=== PATIENT | female | born 1990 | race Caucasian/White ===

== ENCOUNTER 2019-08-25 16:20 | Inpatient (IN) | payer MEDICAID ==
[2019-08-25] MEDS ORDERED: Sodium Chloride 0.9% 10 ML Syringe FLUSH PRN (17:19)
--- NOTE | 2019-08-25 18:03 | PCM.LDHP ---
L&D History of Present Illness - General Date of Service: 08/25/19 Admit Problem/Dx: Patient Status Order with Admit Dx/Problem 08/25/19 17:19 Patient Status [ADT] Routine 08/25/19 17:23 Patient Status [ADT] Routine Admission Diagnosis/Problem Admission Diagnosis/Problem Vaginal delivery H&P Review of Systems - Review of Systems: Review Of Systems: See Below General: Reports: No Symptoms HEENT: Reports: No Symptoms Pulmonary: Reports: No Symptoms Cardiovascular: Reports: No Symptoms Gastrointestinal: Reports: No Symptoms Genitourinary: Reports: No Symptoms Musculoskeletal: Reports: No Symptoms Skin: Reports: No Symptoms Psychiatric: Reports: No Symptoms Neurological: Reports: No Symptoms Hematologic/Lymphatic: Reports: No Symptoms Immunologic: Reports: No Symptoms L&D Exam - Exam Exam: See Below - OB Specific Contraction Intensity: Strong Movement: Active Heart Tones: Present Heart Rate (FHR) Variability: Moderate (6-25 bmp) Presentation: Vertex - Cortés Score Cortés Score Cervix Position: Anterior Cortés Score Consistency: Soft Cortés Score Effacement: >80% Cortés Score Dilation: > 5 cm Cortés Score 's Station: +1, +2 Cortés Score Total: 13 - Exam General: Alert, Oriented, Cooperative HEENT: PERRLA, Conjunctiva Clear, EACs Clear, EOMI, Hearing Intact, Mucosa Moist & [place], Nares Patent, Normal Nasal Septum, Posterior Pharynx Clear, Pupils Equal, Pupils Reactive, TMs Clear Neck: Supple, Trachea Midline Lungs: Clear to Auscultation, Normal Respiratory Effort Cardiovascular: Regular Rate, Regular Rhythm GI/Abdominal Exam: Normal Bowel Sounds, Soft, Non-Tender, No Organomegaly, No Distention, No Abnormal Bruit, No Mass, Pelvis Stable Rectal Exam: Normal Exam, Normal Rectal Tone Genitourinary: Normal external exam, Normal bimanual exam, Normal speculum exam Back Exam: Normal Inspection, Full Range of Motion Extremities: Normal Inspection, Normal Range of Motion, Non-Tender, No Pedal Edema, Normal Capillary Refill Skin: Warm, Dry, Intact Neurological: Cranial Nerves Intact, Reflexes Equal Bilateral Psychiatric: Alert, Normal Affect, Normal Mood - Patient Data Lab Results Last 24 hrs: Laboratory Results - last 24 hr 08/25/19 Range/Units 16:39 WBC 16.3 H (4.5-11.0) K/uL RBC 4.48 (3.30-5.50) M/uL Hgb 12.7 (12.0-15.0) g/dL Hct 38.1 (36.0-48.0) % MCV 85 (80-98) fL MCH 28 (27-31) pg MCHC 33 (32-36) % Plt Count 241 (150-400) K/uL Result Diagrams: 08/25/19 16:39 - Problem List (1) SNOMED Code(s): 03231726 ICD Code: Z34.90 - ENCNTR FOR SUPRVSN OF NORMAL , UNSP, UNSP TRIMESTER Status: Acute Current Visit: Yes Qualifiers: Weeks of gestation: 38 weeks Qualified Code(s): Z3A.38 - 38 weeks gestation of (2) High-risk in third trimester SNOMED Code(s): 61735473, 45730359 ICD Code: O09.93 - SUPERVISION OF HIGH RISK , UNSP, THIRD TRIMESTER Status: Acute Current Visit: Yes (3) History of CVA (cerebrovascular accident) SNOMED Code(s): 557815795 ICD Code: Z86.73 - PRSNL HX OF TIA (TIA), AND CEREB INFRC W/O RESID DEFICITS Status: Acute Current Visit: Yes (4) Dissection, vertebral artery SNOMED Code(s): 929873124 ICD Code: I77.74 - DISSECTION OF VERTEBRAL ARTERY Status: Acute Current Visit: Yes (5) Macrosomia affecting management of mother in third trimester SNOMED Code(s): 73960253, 31490474 ICD Code: O36.63X0 - MATERNAL CARE FOR EXCESS GROWTH, THIRD TRIMESTER, UNSP Status: Acute Current Visit: Yes Qualifiers: Fetus number: single or unspecified fetus Qualified Code(s): O36.63X0 - Maternal care for excessive growth, third trimester, not applicable or unspecified (6) Labor established SNOMED Code(s): 51099907 ICD Code: PYL9137 - Status: Acute Current Visit: Yes (7) Positive GBS test SNOMED Code(s): 931812213, 630152682 ICD Code: B95.1 - STREPTOCOCCUS, GROUP B, CAUSING DISEASES CLASSD ELSWHR Status: Acute Current Visit: Yes Problem List Initiated/Reviewed/Updated: Yes Orders Last 24hrs: Active Orders 24 hr Category Date Time Status Patient Status [ADT] Routine ADT 08/25/19 17:19 Active Patient Status [ADT] Routine ADT 08/25/19 17:23 Active Ambulate [RC] PER UNIT ROUTINE Care 08/25/19 17:19 Active Communication Order [RC] ASDIRECTED Care 08/25/19 17:19 Active Communication Order [RC] Per Unit Routine Care 08/25/19 17:23 Active Communication Order [RC] Per Unit Routine Care 08/25/19 17:23 Active Communication Order [RC] Per Unit Routine Care 08/25/19 17:23 Active Communication Order [RC] Per Unit Routine Care 08/25/19 17:23 Active Heart Tones [RC] PER UNIT ROUTINE Care 08/25/19 17:19 Active Non Stress Test [RC] Click to Edit Care 08/25/19 17:19 Active Nitrous Oxide Delivery [RC] ASDIRECTED Care 08/25/19 17:23 Active Notify Provider Vital Signs [RC] PRN Care 08/25/19 17:19 Active Notify Provider [RC] PRN Care 08/25/19 17:19 Active Oxygen Therapy [RC] ASDIRECTED Care 08/25/19 17:23 Active Pulse Oximetry [RC] ASDIRECTED Care 08/25/19 17:23 Active Up ad Dodie [RC] ASDIRECTED Care 08/25/19 17:19 Active VTE/DVT Education [RC] Click to Edit Care 08/25/19 17:22 Active Verify Patient Consent Obtain [RC] ASDIRECTED Care 08/25/19 17:23 Active Vital Signs [RC] PER UNIT ROUTINE Care 08/25/19 17:19 Active Vital Signs [RC] PER UNIT ROUTINE Care 08/25/19 17:23 Active Vital Signs [RC] PFP Care 08/25/19 17:23 Active Regular Diet [DIET] Diet 08/25/19 Dinner Active CBC WITH AUTO DIFF [HEME] Routine Lab 08/26/19 06:00 Ordered Acetaminophen [Tylenol Bulk Bottle] Med 08/25/19 17:25 Active See Dose Instructions PO Q4H PRN Ibuprofen [Motrin Bulk Bottle] Med 08/25/19 17:25 Active 600 mg PO Q6H PRN Sodium Chloride 0.9% [Saline Flush] Med 08/25/19 17:19 Active 10 ml FLUSH ASDIRECTED PRN Assess Lochia [WOMSER] Per Unit Routine Oth 08/25/19 17:23 Ordered Assess Uterine Involution [WOMSER] Per Unit Routine Oth 08/25/19 17:23 Ordered DVT/VTE Prophylaxis Reflex [OM.PC] Routine Oth 08/25/19 17:19 Ordered Ice Therapy [OM.PC] Per Unit Routine Oth 08/25/19 17:24 Ordered Medication Discontinuation Instructions [OM.PC] Routine Oth 08/25/19 17:23 Ordered Perineal Care [OM.PC] Per Unit Routine Oth 08/25/19 17:24 Ordered Saline Lock Insert [OM.PC] Routine Oth 08/25/19 17:19 Ordered Sitz Bath [OM.PC] Per Unit Routine Oth 08/25/19 17:24 Ordered Resuscitation Status Routine Resus Stat 08/25/19 17:19 Ordered Medication Orders Acetaminophen (Tylenol Bulk Bottle) 0 mg PO Q4H PRN PRN Reason: Pain Ibuprofen (Motrin Bulk Bottle) 600 mg PO Q6H PRN PRN Reason: Pain Sodium Chloride (Saline Flush) 10 ml FLUSH ASDIRECTED PRN PRN Reason: Keep Vein Open Assessment/Plan Comment:: 08/25/2019 28 yo arrived via ambulance. She states she is 38 6/7 weeks with an [place]-09/02/2019. She states that she started vashti about 1145 and then at about 1315 her water broke. She called the ambulance. She has been getting routine care at [place]. She has a high risk due to history fo CVA post vertebral artery dissection-spontaneous, also has a macrosomic fetus. SVE on admission-/0 FHTs dopplered and category one Due to patient's history she had a neurology consult that told her she could not fully push during second stage of labor Labs-O positive, RPR nonreactive, Hep B neg, HIV neg, Rubella nonimmune, GBS positive, Hgb-12.7, Plt-241 Plan- Patient would like to use nitrous for pain relief Continue to monitor labor Continue to monitor FHTs Plan to deliver vaginally, if not able to push a vacuum may be indicated.
[2019-08-25] MEDS: Lanolin 100% Cream 40 GM Tube TOP ONE (18:15)
[2019-08-25] MEDS: Ibuprofen 200 MG Tab, 24 Tab Bulk Bottle PO PRN (18:17)
[2019-08-25] MEDS: Witch Hazel Medicated Pads 100/Jar TOP ONE (18:17)
[2019-08-25] MEDS: Acetaminophen 325 MG Tab, 50 Tab Bulk Bottle PO PRN (18:18)
[2019-08-25] MEDS: Benzocaine 20% Top Spray 56 GM Bottle TOP ONE (18:18)
--- NOTE | 2019-08-25 18:22 | PCM.DEL ---
L & D Note - General Info Date of Service: 08/25/19 Mother's Due Date: 08/25/19 - Delivery Note Labor: Spontaneous Delivery Outcome: Livebirth Infant Delivery Method: Spontaneous Vaginal Delivery-Single Infant Delivery Mode: Spontaneous Presentation: Left Occiput Anterior (PIYUSH) Nuchal Cord: None Anesthesia Type: Nitrous Oxide Amniotic Fluid Description: Clear Episiotomy Type: None Laceration: Perineal (small not bleeding, not repaired) Placenta: Intact, Spontaneous Cord: 3 Vessels Estimated Blood Loss: 350 Resuscitation Needed: No [place]: Stimulated, Warmed Score 1 min: 9 Score 5 min: 9 Second Stage Interventions: Reports: Second Nurse Assessed Progress of Descent, Second Nurse Reviewed Contraction Pattern, Second Nurse Reviewed Heart Tones, Encouragement Given, Laboring Down, Pushing Effectively, Pushing Involuntarily, Pushing, McRobert's Position, Pushing, Stirrups/Leg Supports Delivery Comments (Free Text/Narrative):: 08/25/2019 28 yo delivered a viable female at 1646 on 08/25/2019 at 38 6/7 gestational weeks in PIYUSH position over an intact perineum. Mother has a history of CVA with vertebral artery dissection so light grunt pushing was done with no chin to chest or straining. Patient used nitrous inbetween and was able to deliver after laboring down. Infant was delivered vaginally and then placed on prewarmed blanket on mothers abdomen. cried out spontaneously and began to pink in color. Delayed cord clamping was done for approximately two minutes, then cord was double clamped and cut by the father of the infant. was then brought to be skin to skin with mother at this time. APGARS-9/9 , weight-8lbs 13oz, length-21inches, then placenta came spontaneously, intact, three vessel cord, large gush after but fundus firm with massage, did give a dose of IM pitocin at that time. Patient had small perineal laceration, not bleeding, not repaired, no other lacerations noted of perineum, cervix, labia, vagina, or rectum. EBL-350ml. Mother and both stable in labor and delivery room. Stages of labor- 1st [id number] 2nd [id number] 3rd [id number] - General Info Date of Service: 08/25/19 Functional Status: Reports: Pain Controlled - Review of Systems General: Reports: No Symptoms HEENT: Reports: No Symptoms Pulmonary: Reports: No Symptoms Cardiovascular: Reports: No Symptoms Gastrointestinal: Reports: No Symptoms Genitourinary: Reports: No Symptoms Musculoskeletal: Reports: No Symptoms Skin: Reports: No Symptoms Neurological: Reports: No Symptoms Psychiatric: Reports: No Symptoms - Patient Data Lab Results Last 24 Hours: Laboratory Results - last 24 hr 08/25/19 Range/Units 16:39 WBC 16.3 H (4.5-11.0) K/uL RBC 4.48 (3.30-5.50) M/uL Hgb 12.7 (12.0-15.0) g/dL Hct 38.1 (36.0-48.0) % MCV 85 (80-98) fL MCH 28 (27-31) pg MCHC 33 (32-36) % Plt Count 241 (150-400) K/uL Med Orders - Current: Current Medications Acetaminophen (Tylenol Bulk Bottle) 0 mg PO Q4H PRN PRN Reason: Pain Ibuprofen (Motrin Bulk Bottle) 600 mg PO Q6H PRN PRN Reason: Pain Sodium Chloride (Saline Flush) 10 ml FLUSH ASDIRECTED PRN PRN Reason: Keep Vein Open Discontinued Medications Benzocaine (Txco-C-Njpkrxd 20% [place]) 0 gm TOP ONETIME ONE Stop: 08/25/19 17:24 Emollient Ointment (Lansinoh Hpa) 1 gm TOP ONETIME ONE Stop: 08/25/19 17:24 Lidocaine HCl (Xylocaine 1%) Confirm Administered Dose 100 ml .ROUTE .STK-MED ONE Stop: 08/25/19 16:38 Mineral Oil (Muri-Lube) Confirm Administered Dose 10 ml .ROUTE .STK-MED ONE Stop: 08/25/19 16:38 Oxytocin (Pitocin) Confirm Administered Dose 10 unit .ROUTE .STK-MED ONE Stop: 08/25/19 16:33 Witch Belkis (Tucks) 1 pad TOP ONETIME ONE Stop: 08/25/19 17:24 - Exam General: Alert, Oriented, Cooperative HEENT: Pupils Equal, Pupils Reactive, EOMI, Mucous Membr. Moist/[place] Neck: Supple Lungs: Clear to Auscultation, Normal Respiratory Effort Cardiovascular: Regular Rate, Regular Rhythm, No Murmurs GI/Abdominal Exam: Normal Bowel Sounds, Soft, Non-Tender, No Organomegaly, No Distention, No Abnormal Bruit, No Mass, Pelvis Stable (Female) Exam: Normal External Exam, Normal Speculum Exam, Normal Bimanual Exam, Enlarged Uterus, Vaginal Bleeding Back Exam: Normal Inspection, Full Range of Motion Extremities: Normal Inspection, Normal Range of Motion, Non-Tender, No Pedal Edema, Normal Capillary Refill Skin: Warm, Dry, Intact Neurological: No New Focal Deficit Psy/Mental Status: Alert, Normal Affect, Normal Mood - Problem List & Annotations (1) SNOMED Code(s): 78507651 Code(s): Z34.90 - ENCNTR FOR SUPRVSN OF NORMAL , UNSP, UNSP TRIMESTER Status: Acute Current Visit: Yes Qualifiers: Weeks of gestation: 38 weeks Qualified Code(s): Z3A.38 - 38 weeks gestation of (2) High-risk in third trimester SNOMED Code(s): 92416036, 08340665 Code(s): O09.93 - SUPERVISION OF HIGH RISK , UNSP, THIRD TRIMESTER Status: Acute Current Visit: Yes (3) History of CVA (cerebrovascular accident) SNOMED Code(s): 604234263 Code(s): Z86.73 - PRSNL HX OF TIA (TIA), AND CEREB INFRC W/O RESID DEFICITS Status: Acute Current Visit: Yes (4) Dissection, vertebral artery SNOMED Code(s): 506051517 Code(s): I77.74 - DISSECTION OF VERTEBRAL ARTERY Status: Acute Current Visit: Yes (5) Macrosomia affecting management of mother in third trimester SNOMED Code(s): 30581405, 93038635 Code(s): O36.63X0 - MATERNAL CARE FOR EXCESS GROWTH, THIRD TRIMESTER, UNSP Status: Acute Current Visit: Yes Qualifiers: Fetus number: single or unspecified fetus Qualified Code(s): O36.63X0 - Maternal care for excessive growth, third trimester, not applicable or unspecified (6) Labor established SNOMED Code(s): 59608332 Code(s): FDN3185 - Status: Acute Current Visit: Yes (7) Positive GBS test SNOMED Code(s): 328032011, 374545183 Code(s): B95.1 - STREPTOCOCCUS, GROUP B, CAUSING DISEASES CLASSD ELSWHR Status: Acute Current Visit: Yes - Problem List Review Problem List Initiated/Reviewed/Updated: Yes - My Orders Last 24 Hours: My Active Orders 08/25/19 17:19 Patient Status [ADT] Routine Ambulate [RC] PER UNIT ROUTINE Communication Order [RC] ASDIRECTED Heart Tones [RC] PER UNIT ROUTINE Non Stress Test [RC] Click to Edit Notify Provider Vital Signs [RC] PRN Notify Provider [RC] PRN Up ad Dodie [RC] ASDIRECTED Vital Signs [RC] PER UNIT ROUTINE Sodium Chloride 0.9% [Saline Flush] 10 ml FLUSH ASDIRECTED PRN DVT/VTE Prophylaxis Reflex [OM.PC] Routine Saline Lock Insert [OM.PC] Routine Resuscitation Status Routine 08/25/19 17:22 VTE/DVT Education [RC] Click to Edit 08/25/19 17:23 Patient Status [ADT] Routine Communication Order [RC] Per Unit Routine Communication Order [RC] Per Unit Routine Communication Order [RC] Per Unit Routine Communication Order [RC] Per Unit Routine Nitrous Oxide Delivery [RC] ASDIRECTED Oxygen Therapy [RC] ASDIRECTED Pulse Oximetry [RC] ASDIRECTED Verify Patient Consent Obtain [RC] ASDIRECTED Vital Signs [RC] PER UNIT ROUTINE Vital Signs [RC] PFP Assess Lochia [WOMSER] Per Unit Routine Assess Uterine Involution [WOMSER] Per Unit Routine Medication Discontinuation Instructions [OM.PC] Routine 08/25/19 17:24 Ice Therapy [OM.PC] Per Unit Routine Perineal Care [OM.PC] Per Unit Routine Sitz Bath [OM.PC] Per Unit Routine 08/25/19 17:25 Acetaminophen [Tylenol Bulk Bottle] See Dose Instructions PO Q4H PRN Ibuprofen [Motrin Bulk Bottle] 600 mg PO Q6H PRN 08/25/19 Dinner Regular Diet [DIET] 08/26/19 06:00 CBC WITH AUTO DIFF [HEME] Routine - Assessment Assessment:: 08/25/2019 28 yo at 38 6/7 weeks gestation delivered without complications Macrosomic Fetus High risk History of CVA History of verebral artery dissection GBS positive-not treated - Plan Plan:: 08/25/2019 28 yo arrived via ambulance. She states she is 38 6/7 weeks with an [place]-09/02/2019. She states that she started vashti about 1145 and then at about 1315 her water broke. She called the ambulance. She has been getting routine care at [place]. She has a high risk due to history fo CVA post vertebral artery dissection-spontaneous, also has a macrosomic fetus. SVE on admission-/0 FHTs dopplered and category one Due to patient's history she had a neurology consult that told her she could not fully push during second stage of labor Labs-O positive, RPR nonreactive, Hep B neg, HIV neg, Rubella nonimmune, GBS positive, Hgb-12.7, Plt-241 Plan- Patient would like to use nitrous for pain relief Continue to monitor labor Continue to monitor FHTs Plan to deliver vaginally, if not able to push a vacuum may be indicated. 08/25/2019 Routine cares Watch fundus and bleeding closely Support and encourage Plan and anticipate discharge in 24-48 hours
[2019-08-25] MEDS: Mineral Oil 10 ML Bottle ONE (20:03)
[2019-08-25] MEDS: Oxytocin 10 Units/1 ML SDV ONE (20:03)
[2019-08-25] MEDS: Lidocaine 1% 50 ML MDV ONE (20:03)
[2019-08-25] MEDS: Oxytocin 10 Units/1 ML SDV IM ONE (20:20)
--- NOTE | 2019-08-26 08:17 | PCM.PNPP ---
- General Info Date of Service: 08/26/19 Functional Status: Reports: Pain Controlled - Review of Systems General: Reports: No Symptoms HEENT: Reports: No Symptoms Pulmonary: Reports: No Symptoms Cardiovascular: Reports: No Symptoms Gastrointestinal: Reports: No Symptoms Genitourinary: Reports: No Symptoms Musculoskeletal: Reports: No Symptoms Skin: Reports: No Symptoms Neurological: Reports: No Symptoms Psychiatric: Reports: No Symptoms - General Info Date of Service: 08/26/19 - Patient Data Vital Signs - Most Recent: Last Vital Signs Temp 36.7 C 08/25/19 20:45 Pulse 75 08/26/19 03:00 Resp 16 08/26/19 03:00 BP 112/78 08/26/19 03:00 Pulse Ox 99 08/26/19 03:00 Weight - Most Recent: 80.9 kg Lab Results - Last 24 Hours: Laboratory Results - last 24 hr 08/25/19 08/26/19 Range/Units 16:39 04:10 WBC 16.3 H 13.2 H (4.5-11.0) K/uL RBC 4.48 3.93 (3.30-5.50) M/uL Hgb 12.7 11.1 L (12.0-15.0) g/dL Hct 38.1 33.7 L (36.0-48.0) % MCV 85 86 (80-98) fL MCH 28 28 (27-31) pg MCHC 33 33 (32-36) % Plt Count 241 224 (150-400) K/uL Neut % (Auto) 73 H (36-66) % Lymph % (Auto) 19 L (24-44) % [place] % (Auto) 8 H (2-6) % Eos % (Auto) 1 L (2-4) % Baso % (Auto) 0 (0-1) % Med Orders - Current: Current Medications Acetaminophen (Tylenol Bulk Bottle) 0 mg PO Q4H PRN PRN Reason: Pain Last Admin: 08/25/19 18:18 Dose: 1 bottle Ibuprofen (Motrin Bulk Bottle) 600 mg PO Q6H PRN PRN Reason: Pain Last Admin: 08/25/19 18:17 Dose: 1 bottle Sodium Chloride (Saline Flush) 10 ml FLUSH ASDIRECTED PRN PRN Reason: Keep Vein Open Discontinued Medications Benzocaine (Vdgu-E-Ehbsrzs 20% [place]) 0 gm TOP ONETIME ONE Stop: 08/25/19 17:24 Last Admin: 08/25/19 18:18 Dose: 1 bottle Emollient Ointment (Lansinoh Hpa) 1 gm TOP ONETIME ONE Stop: 08/25/19 17:24 Last Admin: 08/25/19 18:15 Dose: 1 tube Lidocaine HCl (Xylocaine 1%) Confirm Administered Dose 100 ml .ROUTE .STK-MED ONE Stop: 08/25/19 16:38 Last Admin: 08/25/19 20:03 Dose: Not Given Mineral Oil (Muri-Lube) Confirm Administered Dose 10 ml .ROUTE .STK-MED ONE Stop: 08/25/19 16:38 Last Admin: 08/25/19 20:03 Dose: Not Given Oxytocin (Pitocin) Confirm Administered Dose 10 unit .ROUTE .STK-MED ONE Stop: 08/25/19 16:33 Last Admin: 08/25/19 20:03 Dose: Not Given Oxytocin (Pitocin) 10 unit IM ONETIME ONE Stop: 08/25/19 16:46 Last Admin: 08/25/19 20:20 Dose: 10 unit Witch Belkis (Tucks) 1 pad TOP ONETIME ONE Stop: 08/25/19 17:24 Last Admin: 08/25/19 18:17 Dose: 1 bottle - Infant Interaction Disposition, : in Room with Family Interaction: Holding Infant Feeding: Breastfed Infant; Nursed Well Support Person: - Recovery Exam Fundal Tone: Firm Fundal Level: At Umbilicus Fundal Placement: Midline Lochia Amount: Moderate Lochia Color: Rubra/Red Perineum Description: Intact, Minimal Bruising/Swelling Episiotomy/Laceration: None Urinary Elimination: Voided - Exam General: Alert, Oriented, Cooperative HEENT: Pupils Equal Neck: Supple Lungs: Clear to Auscultation, Normal Respiratory Effort Cardiovascular: Regular Rate, Regular Rhythm GI/Abdominal Exam: Normal Bowel Sounds, Soft, Non-Tender, No Organomegaly, No Distention, No Abnormal Bruit, No Mass, Pelvis Stable Extremities: Normal Inspection, Normal Range of Motion, Non-Tender, No Pedal Edema, Normal Capillary Refill Skin: Warm, Dry, Intact Wound/Incisions: Healing Well Neurological: No New Focal Deficit Psy/Mental Status: Alert, Normal Affect, Normal Mood - Problem List & Annotations (1) SNOMED Code(s): 79092758 Code(s): Z34.90 - ENCNTR FOR SUPRVSN OF NORMAL , UNSP, UNSP TRIMESTER Status: Acute Current Visit: Yes Qualifiers: Weeks of gestation: 38 weeks Qualified Code(s): Z3A.38 - 38 weeks gestation of (2) High-risk in third trimester SNOMED Code(s): 30899020, 99390277 Code(s): O09.93 - SUPERVISION OF HIGH RISK , UNSP, THIRD TRIMESTER Status: Acute Current Visit: Yes (3) History of CVA (cerebrovascular accident) SNOMED Code(s): 368114771 Code(s): Z86.73 - PRSNL HX OF TIA (TIA), AND CEREB INFRC W/O RESID DEFICITS Status: Acute Current Visit: Yes (4) Dissection, vertebral artery SNOMED Code(s): 842848674 Code(s): I77.74 - DISSECTION OF VERTEBRAL ARTERY Status: Acute Current Visit: Yes (5) Macrosomia affecting management of mother in third trimester SNOMED Code(s): 80334549, 43346341 Code(s): O36.63X0 - MATERNAL CARE FOR EXCESS GROWTH, THIRD TRIMESTER, UNSP Status: Acute Current Visit: Yes Qualifiers: Fetus number: single or unspecified fetus Qualified Code(s): O36.63X0 - Maternal care for excessive growth, third trimester, not applicable or unspecified (6) Labor established SNOMED Code(s): 89873096 Code(s): EWL5685 - Status: Acute Current Visit: Yes (7) Positive GBS test SNOMED Code(s): 449260094, 314770786 Code(s): B95.1 - STREPTOCOCCUS, GROUP B, CAUSING DISEASES CLASSD ELSWHR Status: Acute Current Visit: Yes - Problem List Review Problem List Initiated/Reviewed/Updated: Yes - My Orders Last 24 Hours: My Active Orders 08/25/19 17:19 Patient Status [ADT] Routine Ambulate [RC] PER UNIT ROUTINE Notify Provider Vital Signs [RC] PRN Notify Provider [RC] PRN Up ad [place] [RC] ASDIRECTED Vital Signs [RC] PER UNIT ROUTINE Sodium Chloride 0.9% [Saline Flush] 10 ml FLUSH ASDIRECTED PRN DVT/VTE Prophylaxis Reflex [OM.PC] Routine Saline Lock Insert [OM.PC] Routine Resuscitation Status Routine 08/25/19 17:22 VTE/DVT Education [RC] Click to Edit 08/25/19 17:23 Patient Status [ADT] Routine Oxygen Therapy [RC] ASDIRECTED Assess Lochia [WOMSER] Per Unit Routine Assess Uterine Involution [WOMSER] Per Unit Routine Medication Discontinuation Instructions [OM.PC] Routine 08/25/19 17:24 Ice Therapy [OM.PC] Per Unit Routine Perineal Care [OM.PC] Per Unit Routine Sitz Bath [OM.PC] Per Unit Routine 08/25/19 17:25 Acetaminophen [Tylenol Bulk Bottle] See Dose Instructions PO Q4H PRN Ibuprofen [Motrin Bulk Bottle] 600 mg PO Q6H PRN 08/25/19 Dinner Regular Diet [DIET] - Assessment Assessment:: 08/25/2019 28 yo at 38 6/7 weeks gestation delivered without complications Macrosomic Fetus High risk History of CVA History of verebral artery dissection GBS positive-not treated 08/26/2019 without complications day one well High risk History of CVA History of verebral artery dissection GBS positive-not treated Fundus firm and bleeding [id number] - Plan Plan:: 08/25/2019 28 yo arrived via ambulance. She states she is 38 6/7 weeks with an [place]-09[place]02/2019. She states that she started vashti about 1145 and then at about 1315 her water broke. She called the ambulance. She has been getting routine care at [place]. She has a high risk due to history fo CVA post vertebral artery dissection-spontaneous, also has a macrosomic fetus. SVE on admission-/100/0 FHTs dopplered and category one Due to patient's history she had a neurology consult that told her she could not fully push during second stage of labor Labs-O positive, RPR nonreactive, Hep B neg, HIV neg, Rubella nonimmune, GBS positive, Hgb-12.7, Plt-241 Plan- Patient would like to use nitrous for pain relief Continue to monitor labor Continue to monitor FHTs Plan to deliver vaginally, if not able to push a vacuum may be indicated. 08/25/2019 Routine cares Watch fundus and bleeding closely Support and encourage Plan and anticipate discharge in 24-48 hours 08/26/2019 Continue routine cares Continue to support and encourage Fit for compression stockings today Plan and anticipate discharge in 24-48 hours
--- NOTE | 2019-08-27 07:57 | PCM.PNPP ---
- General Info Date of Service: 08/27/19 Functional Status: Reports: Pain Controlled - Review of Systems General: Reports: No Symptoms HEENT: Reports: No Symptoms Pulmonary: Reports: No Symptoms Cardiovascular: Reports: No Symptoms Gastrointestinal: Reports: No Symptoms Genitourinary: Reports: No Symptoms Musculoskeletal: Reports: No Symptoms Skin: Reports: No Symptoms Neurological: Reports: No Symptoms Psychiatric: Reports: No Symptoms - General Info Date of Service: 08/27/19 - Patient Data Vital Signs - Most Recent: Last Vital Signs Temp 36.8 C 08/27/19 01:00 Pulse 74 08/27/19 01:00 Resp 18 08/27/19 01:00 BP 116/69 08/27/19 01:00 Pulse Ox 98 08/27/19 01:00 Weight - Most Recent: 80.9 kg I&O - Last 24 Hours: Intake & Output 08/26/19 08/27/19 08/27/19 22:59 06:59 14:59 Intake Total 500 Balance 500 Med Orders - Current: Current Medications Acetaminophen (Tylenol Bulk Bottle) 0 mg PO Q4H PRN PRN Reason: Pain Last Admin: 08/25/19 18:18 Dose: 1 bottle Ibuprofen (Motrin Bulk Bottle) 600 mg PO Q6H PRN PRN Reason: Pain Last Admin: 08/25/19 18:17 Dose: 1 bottle Sodium Chloride (Saline Flush) 10 ml FLUSH ASDIRECTED PRN PRN Reason: Keep Vein Open Discontinued Medications Benzocaine ([id number] 20% [place]) 0 gm TOP ONETIME ONE Stop: 08/25/19 17:24 Last Admin: 08/25/19 18:18 Dose: 1 bottle Emollient Ointment (Lansinoh Hpa) 1 gm TOP ONETIME ONE Stop: 08/25/19 17:24 Last Admin: 08/25/19 18:15 Dose: 1 tube Lidocaine HCl (Xylocaine 1%) Confirm Administered Dose 100 ml .ROUTE .STK-MED ONE Stop: 08/25/19 16:38 Last Admin: 08/25/19 20:03 Dose: Not Given Mineral Oil (Muri-Lube) Confirm Administered Dose 10 ml .ROUTE .STK-MED ONE Stop: 08/25/19 16:38 Last Admin: 08/25/19 20:03 Dose: Not Given Oxytocin (Pitocin) Confirm Administered Dose 10 unit .ROUTE .STK-MED ONE Stop: 08/25/19 16:33 Last Admin: 08/25/19 20:03 Dose: Not Given Oxytocin (Pitocin) 10 unit IM ONETIME ONE Stop: 08/25/19 16:46 Last Admin: 08/25/19 20:20 Dose: 10 unit Karen Kellerel (Tucks) 1 pad TOP ONETIME ONE Stop: 08/25/19 17:24 Last Admin: 08/25/19 18:17 Dose: 1 bottle - Infant Interaction Disposition, : in Room with Family Infant Interaction: Holding Feeding: Breastfed Infant; Nursed Well Support Person: - Recovery Exam Fundal Tone: Firm Fundal Level: At Umbilicus Fundal Placement: Midline Lochia Amount: Small Lochia Color: Rubra/Red Perineum Description: Intact, Minimal Bruising/Swelling Episiotomy/Laceration: None Bladder Status: Voiding Urinary Elimination: Voided - Exam General: Alert, Oriented, Cooperative HEENT: Pupils Equal, Pupils Reactive, EOMI, Mucous Membr. Moist/[place] Neck: Supple Lungs: Clear to Auscultation, Normal Respiratory Effort Cardiovascular: Regular Rate, Regular Rhythm GI/Abdominal Exam: Normal Bowel Sounds, Soft, Non-Tender, No Organomegaly, No Distention, No Abnormal Bruit, No Mass, Pelvis Stable Extremities: Normal Inspection, Normal Range of Motion, Non-Tender, No Pedal Edema, Normal Capillary Refill Skin: Warm, Dry, Intact Wound/Incisions: Healing Well Neurological: No New Focal Deficit Psy/Mental Status: Alert, Normal Affect, Normal Mood - Problem List & Annotations (1) SNOMED Code(s): 61161976 Code(s): Z34.90 - ENCNTR FOR SUPRVSN OF NORMAL , UNSP, UNSP TRIMESTER Status: Acute Current Visit: Yes Qualifiers: Weeks of gestation: 38 weeks Qualified Code(s): Z3A.38 - 38 weeks gestation of (2) High-risk in third trimester SNOMED Code(s): 27239309, 45157924 Code(s): O09.93 - SUPERVISION OF HIGH RISK , UNSP, THIRD TRIMESTER Status: Acute Current Visit: Yes (3) History of CVA (cerebrovascular accident) SNOMED Code(s): 451952425 Code(s): Z86.73 - PRSNL HX OF TIA (TIA), AND CEREB INFRC W/O RESID DEFICITS Status: Chronic Current Visit: Yes (4) Dissection, vertebral artery SNOMED Code(s): 357143509 Code(s): I77.74 - DISSECTION OF VERTEBRAL ARTERY Status: Acute Current Visit: Yes (5) Macrosomia affecting management of mother in third trimester SNOMED Code(s): 12803018, 98222103 Code(s): O36.63X0 - MATERNAL CARE FOR EXCESS GROWTH, THIRD TRIMESTER, UNSP Status: Acute Current Visit: Yes Qualifiers: Fetus number: single or unspecified fetus Qualified Code(s): O36.63X0 - Maternal care for excessive growth, third trimester, not applicable or unspecified (6) Labor established SNOMED Code(s): 32960701 Code(s): OIZ6179 - Status: Acute Current Visit: Yes (7) Positive GBS test SNOMED Code(s): 740257726, 150584762 Code(s): B95.1 - STREPTOCOCCUS, GROUP B, CAUSING DISEASES CLASSD ELSWHR Status: Acute Current Visit: Yes - Problem List Review Problem List Initiated/Reviewed/Updated: Yes - My Orders Last 24 Hours: My Active Orders 08/26/19 08:17 Antiembolic Devices [RC] .Routine Anti-Embolism Stockings AK [Antiembolic Hose] [OM.PC] Routine - Assessment Assessment:: 08/25/2019 28 yo at 38 6/7 weeks gestation delivered without complications Macrosomic Fetus High risk History of CVA History of verebral artery dissection GBS positive-not treated 08/26/2019 without complications day one well High risk History of CVA History of verebral artery dissection GBS positive-not treated Fundus firm and bleeding [id number] 08/27/2019 without complications day two well High risk History of CVA History of verebral artery dissection GBS positive-not treated Desires discharge home today - Plan Plan:: 08/25/2019 28 yo arrived via ambulance. She states she is 38 6/7 weeks with an [place]-09/02/2019. She states that she started vashti about 1145 and then at about 1315 her water broke. She called the ambulance. She has been getting routine care at [facility]. She has a high risk due to history fo CVA post vertebral artery dissection-spontaneous, also has a macrosomic fetus. SVE on admission-/ FHTs dopplered and category one Due to patient's history she had a neurology consult that told her she could not fully push during second stage of labor Labs-O positive, RPR nonreactive, Hep B neg, HIV neg, Rubella nonimmune, GBS positive, Hgb-12.7, Plt-241 Plan- Patient would like to use nitrous for pain relief Continue to monitor labor Continue to monitor FHTs Plan to deliver vaginally, if not able to push a vacuum may be indicated. 08/25/2019 Routine cares Watch fundus and bleeding closely Support and encourage Plan and anticipate discharge in 24-48 hours 08/26/2019 Continue routine cares Continue to support and encourage Fit for compression stockings today Plan and anticipate discharge in 24-48 hours 08/27/2019 Continue routine cares Continue to support and encourage Plan discharge today home To see me in clinic in six weeks for visit
== END 2019-08-27 10:00 | disposition home or self-care (01) | DRG 807 ==
LOC: JP.OB 16:20 → OBSVTOIN 16:46 → JP.MS 22:03
PROVIDERS: ADMIT Advanced Practice Midwife; ATTEND Advanced Practice Midwife
PROC: 10E0XZZ Delivery of Products of Conception, External Approach (ICD-10-PCS; principal; 2019-08-25)
DX: O36.63X0 Maternal care for excessive fetal growth, third trimester, not applicable or unspecified (principal); Z37.0 Single live birth; O99.824 Streptococcus B carrier state complicating childbirth; Z3A.38 38 weeks gestation of pregnancy; Z86.73 Personal history of transient ischemic attack (TIA), and cerebral infarction without residual deficits
CPT/HCPCS: 36415; 59409; 85025; 85027; 99211; A9270-GY; J2590

== ENCOUNTER 2021-04-23 01:32 | Inpatient (IN) | payer MEDICAID ==
--- NOTE | 2021-04-23 02:37 | PCM.LDHP ---
L&D History of Present Illness - General Date of Service: 04/23/21 Admit Problem/Dx: Admission Diagnosis/Problem Admission Diagnosis/Problem Source of Information: Patient History Limitations: Reports: No Limitations - History of Present Illness Introduction:: 04/23/21 Amanda is a 30 yo here at 39 1/7 weeks with spontaneous labor. She had SROM of clear fluid at 2230 last evening, contractions started about 2 hours later. Contractions are now 3-4 minutes apart and moderate in intensity. She has an [place] of 04/29/21. She is O positive blood type, rubella non-immune, GBS negative, PRP/HIV/hep B/C all nonreactive. She has had an uncomplicated . She does have a history of a cerebral artery dissection stroke after the of her first baby. Neurology thought this was spontaneous and found no cause. She has been recommended to be taking a baby aspirin daily during . The of her second child they made her have an epidural and would only let her gently bear down. Her third was a precipitous labor without complications. She declines pain medication again now and understands her risks but wants a natural labor. Timing/Duration: Reports: minutes: (3-4) Location, : Reports: Abdomen, Lower back Quality: Reports: Sharp Severity: Moderate Improves with: Reports: None Worsens with: Reports: None Associated Symptoms: Reports: vaginal fluid. Denies: vaginal bleeding - Related Data Allergies/Adverse Reactions: Allergies Allergy/AdvReac Type Severity Reaction Status Date / Time dexamethasone Allergy Hives Verified 08/25/19 18:00 latex Allergy Hives Verified 08/25/19 18:00 Penicillins Allergy Hives Verified 08/25/19 18:00 Sulfa (Sulfonamide Allergy Hives Verified 08/25/19 18:00 Antibiotics) Home Medications: Home Meds L.acidoph,Paracasei, B.lactis [Probiotic] 1 tab PO DAILY 08/25/19 [History] Pnv No.95/Ferrous Fum/Folic AC [ Caplet] 1 tab PO DAILY 08/25/19 [History] Past Medical History HEENT History: Reports: Impaired Vision Other HEENT History: wears glasses Cardiovascular History: Reports: None Respiratory History: Reports: None Gastrointestinal History: Reports: GERD, Irritable Bowel Syndrome Genitourinary History: Reports: None TOWER CLIMBER History: Reports: : 4 Para: 3 LMP (Approximate): Musculoskeletal History: Reports: None Neurological History: Reports: CVA, Headaches, Chronic, Migraines, Other (See Below) Other Neuro History: vertebral aterial dissection Psychiatric History: Reports: None Endocrine/Metabolic History: Reports: Other (See Below) Other Endocrine/Metabolic History: thyroid dysfunction Hematologic History: Reports: Other (See Below) Other Hematologic History: vitamin D deficiency Immunologic History: Reports: None Oncologic (Cancer) History: Reports: None Dermatologic History: Reports: None - Infectious Disease History Infectious Disease History: Reports: None - Past Surgical History Head Surgeries/Procedures: Reports: None HEENT Surgical History: Reports: None Cardiovascular Surgical History: Reports: None Respiratory Surgical History: Reports: None GI Surgical History: Reports: None Female Surgical History: Reports: LEEP, Other (See Below) Other Female Surgeries/Procedures: cervical biopsy, ovarian cysts Neurological Surgical History: Reports: None Musculoskeletal Surgical History: Reports: None Oncologic Surgical History: Reports: None Dermatological Surgical History: Reports: Skin Biopsy Social & Family History - Family History Family Medical History: No Pertinent Family History - Tobacco Use Tobacco Use Status *Q: Never Tobacco User - Caffeine Use Caffeine Use: Reports: Coffee - Recreational Drug Use Recreational Drug Use: No H&P Review of Systems - Review of Systems: Review Of Systems: See Below General: Reports: No Symptoms HEENT: Reports: No Symptoms Pulmonary: Reports: No Symptoms Cardiovascular: Reports: No Symptoms Gastrointestinal: Reports: No Symptoms Genitourinary: Reports: No Symptoms Musculoskeletal: Reports: No Symptoms Skin: Reports: No Symptoms Psychiatric: Reports: No Symptoms Neurological: Reports: No Symptoms Hematologic/Lymphatic: Reports: No Symptoms Immunologic: Reports: No Symptoms L&D Exam - Exam Exam: See Below - Vital Signs Weight: 82.554 kg - OB Specific Contraction Intensity: Moderate Movement: Active Heart Tones: Present Heart Tones per Min: 140 Heart Rate (FHR) Variability: Moderate (6-25 bpm) Presentation: Vertex - Exam General: Alert, Oriented HEENT: PERRLA, Mucosa Moist & [place], Pupils Equal, Pupils Reactive Neck: Supple, Trachea Midline Lungs: Clear to Auscultation, Normal Respiratory Effort Cardiovascular: Regular Rate, Regular Rhythm GI/Abdominal Exam: Normal Bowel Sounds, Soft, Non-Tender, Pelvis Stable Genitourinary: Normal external exam Back Exam: Normal Inspection, Full Range of Motion Extremities: Normal Inspection, Normal Range of Motion, Non-Tender, No Pedal Edema Skin: Warm, Dry, Intact Neurological: Cranial Nerves Intact, Reflexes Equal Bilateral Psychiatric: Alert, Normal Affect, Normal Mood - Patient Data Lab Results Last 24 hrs: Laboratory Results - last 24 hr 04/23/21 04/23/21 04/23/21 Range/Units 02:04 02:05 02:05 Urine Color Yellow (YELLOW) Urine Appearance Clear (CLEAR) Urine pH 7.0 (5.0-8.0) Ur Specific [place] 1.015 (1.008-1.030) Urine Protein Negative (NEGATIVE) mg/dL Urine Glucose (UA) Negative (NEGATIVE) mg/dL Urine Ketones Negative (NEGATIVE) mg/dL Urine Occult Blood Negative (NEGATIVE) Urine Nitrite Negative (NEGATIVE) Urine Bilirubin Negative (NEGATIVE) Urine Urobilinogen 0.2 (0.2-1.0) EU/dL Ur Leukocyte Esterase Trace H (NEGATIVE) Urine RBC 0-5 (0-5) Urine WBC 0-5 (0-5) Ur Epithelial Cells Rare Amorphous Sediment Not seen Urine Bacteria Few Urine Mucus Not seen Urine Opiates Screen Negative (NEGATIVE) Ur Oxycodone Screen Negative (NEGATIVE) Urine Methadone Screen Negative (NEGATIVE) Ur Propoxyphene Screen Negative (NEGATIVE) Ur Barbiturates Screen Negative (NEGATIVE) Ur Tricyclics Screen Negative (NEGATIVE) Ur Phencyclidine Scrn Negative (NEGATIVE) Ur Amphetamine Screen Negative (NEGATIVE) U Methamphetamines Scrn Negative (NEGATIVE) Urine MDMA Screen Negative (NEGATIVE) U Benzodiazepines Scrn Negative (NEGATIVE) U Cocaine Metab Screen Negative (NEGATIVE) U Marijuana (THC) Screen Negative (NEGATIVE) SARS CoV-2 RNA Rapid [place] Negative - Problem List (1) SROM (spontaneous rupture of membranes) SNOMED Code(s): 230807099 ICD Code: OCP0033 - Status: Acute Current Visit: Yes (2) High-risk in third trimester SNOMED Code(s): 70012916, 77695547 ICD Code: O09.93 - SUPERVISION OF HIGH RISK , UNSP, THIRD TRIMESTER Status: Acute Current Visit: No (3) Labor established SNOMED Code(s): 00720819 ICD Code: QOA2832 - Status: Acute Current Visit: No Problem List Initiated/Reviewed/Updated: Yes Assessment/Plan Comment:: 04/23/21 here at 39 1/7 weeks in active labor with SROM of clear fluid at home 4 hours ago SVE not done yet per patient request, nursing unable to find cervix C/o back pain and contractions not feeling very intense, hands and knees now to help Declines pain control Declines IV and third stage management unless necessary GBS negative O positive blood type Rubella non-immune Category 1 tracing Plan: Anticipate
[2021-04-23] MEDS ORDERED: Ondansetron 4 MG/2 ML SDV IV PRN (02:40)
[2021-04-23] MEDS ORDERED: Calcium Carbonate 500 MG Tab.Chew PO PRN (02:40)
[2021-04-23] MEDS ORDERED: Witch Hazel Medicated Pads 100/Jar TOP ONE (05:45)
[2021-04-23] MEDS ORDERED: Ibuprofen 200 MG Tab, 24 Tab Bulk Bottle PO PRN (05:45)
[2021-04-23] MEDS ORDERED: Acetaminophen 325 MG Tab, 50 Tab Bulk Bottle PO PRN (05:45)
[2021-04-23] MEDS ORDERED: Benzocaine 20% Top Spray 56 GM Bottle TOP ONE (05:45)
[2021-04-23] MEDS ORDERED: Docusate Sodium 100 MG Cap PO PRN (05:45)
[2021-04-23] MEDS ORDERED: Lanolin 100% Cream 40 GM Tube TOP PRN (05:45)
--- NOTE | 2021-04-23 05:56 | PCM.DEL ---
L & D Note - General Info Date of Service: 04/23/21 Mother's Due Date: 04/29/21 - Delivery Note Labor: Spontaneous Delivery Outcome: Livebirth Infant Delivery Method: Spontaneous Vaginal Delivery-Single Infant Delivery Mode: Spontaneous Presentation: Left Occiput Anterior (PIYUSH) Nuchal Cord: Present (loose x 1 reduced) Anesthesia Type: Nitrous Oxide Episiotomy Type: None Laceration: None Placenta: Intact, Spontaneous Cord: 3 Vessels Estimated Blood Loss: 400 Resuscitation Needed: No : [place] Used Provider: Mary Kahn Score 1 min: 9 Score 5 min: 9 Second Stage Interventions: Reports: Second Nurse Assessed Progress of Descent, Second Nurse Reviewed Contraction Pattern, Second Nurse Reviewed Heart Tones, Encouragement Given, Pushing Effectively, Pushing, Knee Chest Position, Pushing, McRobert's Position, Pushing, Right Side Delivery Comments (Free Text/Narrative):: 04/23/21 G4 now P4 delivered viable female at 0516. She had SROM at home last guillaume patience and labor that began spontaneously after that. She progressed very quickly once active labor was achieved. She used the tub and nitrous oxide for pain control. She began pushing on her hands an knees but was uncomfortable so delivered baby right side lying. Baby girl was delivered in PIYUSH position. There was one loose nuchal cord, reduced. She was placed on mothers chest and cried spontaneously. Delayed cord clamping was done for about 4 minutes. Placenta delivered intact, spontaneous, with a 3 vessel cord. EBL ~400 ml, mother declined pitocin or other medications for third stage management but understands if she shows any signs of more bleeding she this will be needed and she agrees. The bleeding did seem to stop or be very light after placenta delivered. There were no perineal, vaginal, or cervical lacerations. Fundus is very firm with baby at breast. Apgars 9, 9. 8 lb 10 oz. Stages of labor: 1: 5160-2358 2: 0512-0525 3: 2837-6330 - General Info Date of Service: 04/23/21 Functional Status: Reports: Pain Controlled - Review of Systems General: Reports: No Symptoms HEENT: Reports: No Symptoms Pulmonary: Reports: No Symptoms Cardiovascular: Reports: No Symptoms Gastrointestinal: Reports: No Symptoms Genitourinary: Reports: No Symptoms Musculoskeletal: Reports: No Symptoms Skin: Reports: No Symptoms Neurological: Reports: No Symptoms Psychiatric: Reports: No Symptoms - Patient Data Weight - Most Recent: 82.554 kg Lab Results Last 24 Hours: Laboratory Results - last 24 hr 04/23/21 04/23/21 04/23/21 Range/Units 02:04 02:05 02:05 WBC (4.5-11.0) K/uL RBC (3.30-5.50) M/uL Hgb (12.0-15.0) g/dL Hct (36.0-48.0) % MCV (80-98) fL MCH (27-31) pg MCHC (32-36) % Plt Count (150-400) K/uL Neut % (Auto) (36-66) % Lymph % (Auto) (24-44) % [place] % (Auto) (2-6) % Eos % (Auto) (2-4) % Baso % (Auto) (0-1) % Urine Color Yellow (YELLOW) Urine Appearance Clear (CLEAR) Urine pH 7.0 (5.0-8.0) Ur Specific [place] 1.015 (1.008-1.030) Urine Protein Negative (NEGATIVE) mg/dL Urine Glucose (UA) Negative (NEGATIVE) mg/dL Urine Ketones Negative (NEGATIVE) mg/dL Urine Occult Blood Negative (NEGATIVE) Urine Nitrite Negative (NEGATIVE) Urine Bilirubin Negative (NEGATIVE) Urine Urobilinogen 0.2 (0.2-1.0) EU/dL Ur Leukocyte Esterase Trace H (NEGATIVE) Urine RBC 0-5 (0-5) Urine WBC 0-5 (0-5) Ur Epithelial Cells Rare Amorphous Sediment Not seen Urine Bacteria Few Urine Mucus Not seen Urine Opiates Screen Negative (NEGATIVE) Ur Oxycodone Screen Negative (NEGATIVE) Urine Methadone Screen Negative (NEGATIVE) Ur Propoxyphene Screen Negative (NEGATIVE) Ur Barbiturates Screen Negative (NEGATIVE) Ur Tricyclics Screen Negative (NEGATIVE) Ur Phencyclidine Scrn Negative (NEGATIVE) Ur Amphetamine Screen Negative (NEGATIVE) U Methamphetamines Scrn Negative (NEGATIVE) Urine MDMA Screen Negative (NEGATIVE) U Benzodiazepines Scrn Negative (NEGATIVE) U Cocaine Metab Screen Negative (NEGATIVE) U Marijuana (THC) Screen Negative (NEGATIVE) SARS CoV-2 RNA Rapid [place] Negative 11/01/21 Range/Units 02:45 WBC 10.6 (4.5-11.0) K/uL RBC 4.05 (3.30-5.50) M/uL Hgb 11.9 L (12.0-15.0) g/dL Hct 34.7 L (36.0-48.0) % MCV 86 (80-98) fL MCH 29 (27-31) pg MCHC 34 (32-36) % Plt Count 214 (150-400) K/uL Neut % (Auto) 71.0 H (36-66) % Lymph % (Auto) 21.0 L (24-44) % [place] % (Auto) 6.0 (2-6) % Eos % (Auto) 1.0 L (2-4) % Baso % (Auto) 1.0 (0-1) % Urine Color (YELLOW) Urine Appearance (CLEAR) Urine pH (5.0-8.0) Ur Specific [place] (1.008-1.030) Urine Protein (NEGATIVE) mg/dL Urine Glucose (UA) (NEGATIVE) mg/dL Urine Ketones (NEGATIVE) mg/dL Urine Occult Blood (NEGATIVE) Urine Nitrite (NEGATIVE) Urine Bilirubin (NEGATIVE) Urine Urobilinogen (0.2-1.0) EU/dL Ur Leukocyte Esterase (NEGATIVE) Urine RBC (0-5) Urine WBC (0-5) Ur Epithelial Cells Amorphous Sediment Urine Bacteria Urine Mucus Urine Opiates Screen (NEGATIVE) Ur Oxycodone Screen (NEGATIVE) Urine Methadone Screen (NEGATIVE) Ur Propoxyphene Screen (NEGATIVE) Ur Barbiturates Screen (NEGATIVE) Ur Tricyclics Screen (NEGATIVE) Ur Phencyclidine Scrn (NEGATIVE) Ur Amphetamine Screen (NEGATIVE) U Methamphetamines Scrn (NEGATIVE) Urine MDMA Screen (NEGATIVE) U Benzodiazepines Scrn (NEGATIVE) U Cocaine Metab Screen (NEGATIVE) U Marijuana (THC) Screen (NEGATIVE) SARS CoV-2 RNA Rapid [place] Med Orders - Current: Current Medications Calcium Carbonate/Glycine (Calcium Carbonate 500 Mg Tab.Chew) 1,000 mg PO Q2H PRN PRN Reason: Indigestion Ondansetron HCl (Ondansetron 4 Mg/2 Ml Sdv) 4 mg IV Q4H PRN PRN Reason: Nausea/Vomiting - Exam General: Alert, Oriented HEENT: Pupils Equal, Pupils Reactive, Mucous Membr. Moist/[place] Neck: Supple Lungs: Clear to Auscultation, Normal Respiratory Effort Cardiovascular: Regular Rate, Regular Rhythm GI/Abdominal Exam: Normal Bowel Sounds, Soft, Non-Tender, Pelvis Stable (Female) Exam: Normal External Exam, Normal Bimanual Exam, Enlarged Uterus, Vaginal Bleeding Back Exam: Normal Inspection, Full Range of Motion Extremities: Normal Inspection, Normal Range of Motion, Non-Tender, No Pedal Edema, Normal Capillary Refill Skin: Warm, Dry, Intact Neurological: No New Focal Deficit Psy/Mental Status: Alert, Normal Affect, Normal Mood - Problem List & Annotations (1) SROM (spontaneous rupture of membranes) SNOMED Code(s): 574280591 Code(s): JVN4089 - Status: Acute Current Visit: Yes (2) High-risk in third trimester SNOMED Code(s): 74333700, 22408068 Code(s): O09.93 - SUPERVISION OF HIGH RISK , UNSP, THIRD TRIMESTER Status: Acute Current Visit: No (3) Labor established SNOMED Code(s): 52451700 Code(s): NVX9156 - Status: Acute Current Visit: No (4) Normal spontaneous vaginal delivery SNOMED Code(s): 15408157, 444667039 Code(s): O80 - ENCOUNTER FOR FULL-TERM UNCOMPLICATED DELIVERY Status: Acute Current Visit: Yes (5) started SNOMED Code(s): 092296347 Code(s): QVZ0862 - Status: Acute Current Visit: Yes - Problem List Review Problem List Initiated/Reviewed/Updated: Yes - My Orders Last 24 Hours: My Active Orders 04/23/21 02:40 Patient Status [ADT] Routine Communication Order [RC] ASDIRECTED Heart Tones [RC] PER UNIT ROUTINE Notify Provider [RC] PRN Up ad Dodie [RC] ASDIRECTED Vital Signs [RC] PER UNIT ROUTINE Calcium Carbonate [Tums] 1,000 mg PO Q2H PRN Ondansetron [Zofran] 4 mg IV Q4H PRN DVT/VTE Prophylaxis Reflex [OM.PC] Routine Resuscitation Status Routine 04/23/21 02:44 Notify Provider Vital Signs [RC] PRN 04/23/21 02:45 VTE/DVT Education [RC] Click to Edit 04/23/21 05:45 Patient Status [ADT] Routine Vital Signs [RC] PFP Consult to Java Web[employer] Developer [CONS] Routine Acetaminophen [Tylenol Bulk Bottle] See Dose Instructions PO Q4H PRN Benzocaine [Yvvm-Y-Zqzpjix 20% [place]] See Dose Instructions TOP ONETIME ONE Docusate Sodium [Colace] 100 mg PO BID PRN Ibuprofen [Motrin Bulk Bottle] 600 mg PO Q6H PRN Lanolin [Lansinoh HPA] 40 gm TOP ASDIRECTED PRN witch [place] [Tucks] 1 pad TOP ONETIME ONE Assess Lochia [WOMSER] Per Unit Routine Assess Uterine Involution [WOMSER] Per Unit Routine 04/23/21 05:46 Ice Therapy [OM.PC] Per Unit Routine Perineal Care [OM.PC] Per Unit Routine 04/23/21 Breakfast Regular Diet [DIET] Ferrous Sulfate 325 mg PO WITHBREAKFAST 04/24/21 05:11 CBC WITH AUTO DIFF [HEME] AM - Assessment Assessment:: 04/23/21 with at 39 1/7 weeks GBS negative Rubella non-immune- declines all vaccinations history of stroke, monitor closely EBL 400 ml, declined third stage management - Plan Plan:: 04/23/21 here at 39 1/7 weeks in active labor with SROM of clear fluid at home 4 hours ago SVE not done yet per patient request, nursing unable to find cervix C/o back pain and contractions not feeling very intense, hands and knees now to help Declines pain control Declines IV and third stage management unless necessary GBS negative O positive blood type Rubella non-immune Category 1 tracing Plan: Anticipate Plan: Continue baby aspirin support Routine cares Monitor for bleeding and if needed may give IM Pitocin Anticipate 24-48 hour stay
[2021-04-23] MEDS: Aspirin 81 MG Tab.EC PO SCH (10:14)
[2021-04-23] MEDS: Ferrous Sulfate 325 MG Tab PO SCH (10:14)
[2021-04-23] MEDS ORDERED: Benzocaine 20% Top Spray 56 GM Bottle TOP PRN (10:16)
[2021-04-23] MEDS ORDERED: Witch Hazel Medicated Pads 100/Jar TOP PRN (10:17)
--- NOTE | 2021-04-24 08:14 | PCM.PNPP ---
- General Info Date of Service: 04/24/21 (PPD 1 D/C) Admission Dx/Problem (Free Text): Admission Diagnosis/Problem Admission Diagnosis/Problem Functional Status: Reports: Pain Controlled - Review of Systems General: Reports: No Symptoms HEENT: Reports: No Symptoms Pulmonary: Reports: No Symptoms Cardiovascular: Reports: No Symptoms Gastrointestinal: Reports: No Symptoms Genitourinary: Reports: No Symptoms Musculoskeletal: Reports: No Symptoms Skin: Reports: No Symptoms Neurological: Reports: No Symptoms Psychiatric: Reports: No Symptoms - General Info Date of Service: 04/24/21 - Patient Data Vital Signs - Most Recent: Last Vital Signs Temp 97.5 F 04/24/21 04:24 Pulse 80 04/24/21 04:24 Resp 16 04/24/21 04:24 BP 115/74 04/24/21 04:24 Pulse Ox 99 04/24/21 04:24 Weight - Most Recent: 182 lb Lab Results - Last 24 Hours: Laboratory Results - last 24 hr 04/24/21 Range/Units 04:50 WBC 13.8 H (4.5-11.0) K/uL RBC 3.59 (3.30-5.50) M/uL Hgb 10.5 L (12.0-15.0) g/dL Hct 31.5 L (36.0-48.0) % MCV 88 (80-98) fL MCH 29 (27-31) pg MCHC 33 (32-36) % Plt Count 181 (150-400) K/uL Neut % (Auto) 71.7 H (36-66) % Lymph % (Auto) 20.1 L (24-44) % [place] % (Auto) 6.9 H (2-6) % Eos % (Auto) 1.0 L (2-4) % Baso % (Auto) 0.3 (0-1) % Med Orders - Current: Current Medications Acetaminophen (Acetaminophen 325 Mg Tab, 50 Tab Bulk Bottle) 0 mg PO Q4H PRN PRN Reason: Pain Aspirin (Aspirin 81 Mg Tab.Ec) 81 mg PO DAILY FREDDIE Last Admin: 04/23/21 10:14 Dose: 81 mg Documented by: Benzocaine (Benzocaine 20% Top [place] 56 Gm Bottle) 0 gm TOP Q4H PRN PRN Reason: PAIN Last Admin: 04/23/21 10:22 Dose: 1 applic Documented by: Calcium Carbonate/Glycine (Calcium Carbonate 500 Mg Tab.Chew) 1,000 mg PO Q2H PRN PRN Reason: Indigestion Docusate Sodium (Docusate Sodium 100 Mg Cap) 100 mg PO BID PRN PRN Reason: Constipation Emollient Ointment (Lanolin 100% Cream 40 Gm Tube) 40 gm TOP ASDIRECTED PRN PRN Reason: Other Last Admin: 04/23/21 10:24 Dose: 1 applic Documented by: Ferrous Sulfate (Ferrous Sulfate 325 Mg Tab) 325 mg PO WITHBREAKFAST FREDDIE Last Admin: 04/23/21 10:14 Dose: 325 mg Documented by: Ibuprofen (Ibuprofen 200 Mg Tab, 24 Tab Bulk Bottle) 600 mg PO Q6H PRN PRN Reason: Pain Ondansetron HCl (Ondansetron 4 Mg/2 Ml Sdv) 4 mg IV Q4H PRN PRN Reason: Nausea/Vomiting Witch Belkis (Witch Belkis Medicated Pads 100/Jar) 1 pad TOP ASDIRECTED PRN PRN Reason: PAIN Discontinued Medications Benzocaine (Benzocaine 20% Top [place] 56 Gm Bottle) 0 gm TOP ONETIME ONE Stop: 04/23/21 05:46 Last Admin: 04/23/21 10:23 Dose: Not Given Documented by: Witch Belkis (Witch Belkis Medicated Pads 100/Jar) 1 pad TOP ONETIME ONE Stop: 04/23/21 05:46 Last Admin: 04/23/21 10:23 Dose: Not Given Documented by: - Infant Interaction Infant Disposition, : in Room with Family Infant Interaction: Holding Infant Infant Feeding: Breastfed Infant; Nursed Well Support Person: - Recovery Exam Fundal Tone: Firm Fundal Level: 1 Fingerbreadths Below Umbilicus Fundal Placement: Midline Lochia Amount: Small Lochia Color: Rubra/Red Perineum Description: Intact, Minimal Bruising/Swelling Episiotomy/Laceration: None Bladder Status: Voiding Urinary Elimination: Voided - Exam General: Alert, Oriented HEENT: Pupils Equal Neck: Supple Lungs: Normal Respiratory Effort Cardiovascular: Regular Rate, Regular Rhythm GI/Abdominal Exam: Soft, Non-Tender Extremities: Normal Inspection, No Pedal Edema Skin: Warm, Dry Wound/Incisions: Healing Well Neurological: No New Focal Deficit Psy/Mental Status: Alert, Normal Affect, Normal Mood - Problem List & Annotations (1) Normal spontaneous vaginal delivery SNOMED Code(s): 73574911, 652238788 Code(s): O80 - ENCOUNTER FOR FULL-TERM UNCOMPLICATED DELIVERY Status: Acute Current Visit: Yes (2) started SNOMED Code(s): 017362009 Code(s): RGP2948 - Status: Acute Current Visit: Yes (3) Macrosomia affecting management of mother in third trimester SNOMED Code(s): 00135720, 07221080 Code(s): O36.63X0 - MATERNAL CARE FOR EXCESS GROWTH, THIRD TRIMESTER, UNSP Status: Acute Current Visit: No Qualifiers: Fetus number: single or unspecified fetus Qualified Code(s): O36.63X0 - Maternal care for excessive growth, third trimester, not applicable or unspecified (4) Positive GBS test SNOMED Code(s): 246573832, 878774985 Code(s): B95.1 - STREPTOCOCCUS, GROUP B, CAUSING DISEASES CLASSD [id number] Status: Acute Current Visit: No (5) History of CVA (cerebrovascular accident) SNOMED Code(s): 731209359 Code(s): Z86.73 - PRSNL HX OF TIA (TIA), AND CEREB INFRC W/O RESID DEFICITS Status: Chronic Current Visit: No - Problem List Review Problem List Initiated/Reviewed/Updated: Yes - Assessment Assessment:: 04/23/21 with at 39 1/7 weeks GBS negative Rubella non-immune- declines all vaccinations history of stroke, monitor closely EBL 400 ml, declined third stage management 04/24/21 PPD 1, without complications. Doing well no problems HGB 10.5 Wants to go home - Plan Plan:: 04/23/21 here at 39 1/7 weeks in active labor with SROM of clear fluid at home 4 hours ago SVE not done yet per patient request, nursing unable to find cervix C/o back pain and contractions not feeling very intense, hands and knees now to help Declines pain control Declines IV and third stage management unless necessary GBS negative O positive blood type Rubella non-immune Category 1 tracing Plan: Anticipate Plan: Continue baby aspirin support Routine cares Monitor for bleeding and if needed may give IM Pitocin Anticipate 24-48 hour stay 04/24/21 Home today 6 week post visit Iron supplement and healthy diet
[2021-04-24] MEDS: Aspirin 81 MG Tab.EC PO SCH (09:42)
[2021-04-24] MEDS: Ferrous Sulfate 325 MG Tab PO SCH (09:42)
== END 2021-04-24 10:30 | disposition home or self-care (01) | DRG 807 ==
LOC: JP.OBCHECK 01:32 → JP.OB 02:30 → JP.OBCHECK 02:31 → JP.OB 02:34 → OBSVTOIN 05:16 → JP.MS 08:20
PROVIDERS: ADMIT Advanced Practice Midwife; ATTEND Advanced Practice Midwife
PROC: 10E0XZZ Delivery of Products of Conception, External Approach (ICD-10-PCS; principal; 2021-04-23)
DX: O36.63X0 Maternal care for excessive fetal growth, third trimester, not applicable or unspecified (principal); Z37.0 Single live birth; Z3A.39 39 weeks gestation of pregnancy; O69.81X0 Labor and delivery complicated by cord around neck, without compression, not applicable or unspecified
CPT/HCPCS: 36415; 80305-QW; 81001; 85025; A9270-GY; U0002